=== PATIENT | male | born 1960 | race Caucasian/White ===

== ENCOUNTER 2023-10-01 11:17 | Outpatient (CLI) | payer OTHER ==
--- NOTE | 2023-10-01 11:53 | Sleep Patient Instructions ---
Sleep Center Visit Summary - Patient Visit Information Reason for Visit: Initial consultation - Patient Instructions Additional Instructions: You will continue with CPAP therapy with pressure set at 10 cmH2O. A supply prescription will be updated with your DME. An order for a verifying sleep study since your last sleep study was in 2005 and you have lost weight. We encourage you to continue to try to lose weight. Please follow up with the sleep care office after sleep study and for first compliance visit. - Clinic Information Contact: [facility] [address] [place] [id number] [email or web address] T: [phone]
--- NOTE | 2023-10-01 12:02 | SLEEP CARE CONSULTATION ---
Information from patient questionnaire entered by Ute Medina. I have reviewed and concur with the information entered by Ute Medina. This document represents the service I personally performed and the decisions made by me, Ros Christina ARNP. History of Present Illness Service Date and Time: 10/01/2023 1117 Reason for Visit: Previously diagnosed sleep apnea, sleep apnea on CPAP therapy, Re-establish care Chief Complaint: reports: Other (RE-EVALUATION, NEW MACHINE) Date of Onset: 20+ Usual bedtime: 8-9 Time it takes to fall asleep: 30-120MIN Snores at night: Yes Observed to quit breathing while asleep: Yes Sleeps alone due to snoring: No (N/A) Number of times waking at night: 2-3 Reasons for waking at night: reports: Bathroom. denies: Choking, Snoring, Gasping for air Toss, Turn, or Twitch while sleeping: Yes Recalls having dreams: No Usually gets out of bed at: 330-7AM Feels refreshed in the morning: No Morning headache: No Sleepy or fatigued during the day: No Ever fallen asleep while driving: No Takes day naps: No Prior sleep studies: Yes Year and Where: HERE SEVERAL YRS AGO Additional HPI information: SAMANTHA ANDRADE was previously diagnosed to have moderate, AHI 16.5, obstructive sleep apnea-hypopnea syndrome and comes in today to re-establish care for CPAP therapy. - Parasomnia Symptoms Ever been unable to move upon waking from sleep: No Walks in sleep: No Talks in sleep: No Ever acted out dreams in sleep: No Ever felt weak in the knees when startled or emotional: No Bothered by creepy, crawly, restless sensations in legs: No Problems with memory or concentration: No CPAP Compliance Data - Data Reviewed with Patient Average duration of nightly device use: 8 hours 11 minutes Compliance rate %: 97.8 (184/185 days used) Current pressure setting (cmH2O): 10 Humidity setting: off Average residual AHI: 0.3 Average large leak: 14 mins 23 secs Compliance data discussion: He has a REMstar Pro system one that was set up in 2014. He is getting his supplies from [employer]. He is using Nuance Gel Pillows mask, medium cushion. Subjective Patient concerns: denies: aerophagia, mask discomfort, air blowing in eyes, mask leak noise, condensation in mask/hose, nasal congestion, dry mouth, nose, throat, epistaxis Observed to snore while using device: No Current pressure setting perceived as: comfortable On therapy, patient: reports: sleeping better, awakening more refreshed, being more awake and alert during the day, more rested overall. denies: drowsiness while driving Initial [place] Sleepiness Scale score: 0 (08/22/23) Past Medical History Past Medical History: reports: Hypertension, Diabetes Social History The patient's occupation is a RE. Patient is and lives in [place]. Have you smoked in the past 12 months: No Alcohol use: Yes Alcohol amount and frequency: 12OZ DAILY Caffeine use: Yes Caffeine amount and frequency: 1 CUP EVERY MORNING Family History Family history of sleep disordered breathing: Yes Family Hx Sleep Apnea: Mother: Sleep apnea - Treated Allergies and Home Medications Known drug allergies: No Drug allergies reviewed: Yes Home medication list reviewed: Yes Allergy and home medication list: Allergies No Known Drug Allergies Allergy (Verified 09/27/23 11:03) Home Medications Medication Instructions Recorded Confirmed Last Taken Type Telmisartan See Rx Instructions .ROUTE .COMPLEX 09/27/23 09/27/23 Unknown History Terbinafine [Lamisil] See Rx Instructions .ROUTE .COMPLEX 09/27/23 09/27/23 Unknown History metFORMIN [Glucophage] See Rx Instructions .ROUTE .COMPLEX 09/27/23 09/27/23 Unknown History Review of Systems Weight loss over past 5 years: 30 Cardiovascular: reports: high blood pressure Gastrointestinal: denies: heartburn Neurological: denies: headaches Psychiatric: denies: anxiety, depression Ear/Nose/Throat: reports: wisdom teeth removed. denies: tonsillectomy (born without tonsils) Musculoskeletal: reports: joint pain, neck pain, back pain Physical Exam Vital signs obtained and entered by: SEAN MERAZ Blood Pressure: 154/89 Cuff size: regular (left arm) Heart Rate: 71 O2 Saturation: 99 Height: 6 ft 3 in Weight: 223 lb Body Mass Index: 27.8 BMI Classification: Overweight Neck circumference: 17 (inches) Heart: regular rate and rhythm Lungs: clear bilaterally Impression and Plan 1. Obstructive Sleep Apnea-Hypopnea Syndrome, moderate, with good treatment compliance and good apnea control. On CPAP therapy, the patient has better sleep quality and is more rested overall. He has a REMstar Pro that he received in 2015. The patients CPAP is over 5 years old and of reasonable use. Thus, the CPAP will be updated. A DWO prescription will be made. Compliance guidelines for new device and follow up discussed. Patient's last sleep study was in 2005 which showed moderate obstructive sleep apnea with AHI at 16.5. He has lost about 30 pounds. I feel it would be good to get a new baseline of his sleep apnea. I am going to order a new sleep study and request that he not use his CPAP the night before and night of the study. We will try to coordinate a follow -up after the sleep study and with his new CPAP machine if able. He voiced understanding and agreement of plan of care. Patient's apnea severity and rationale for treatment to reduce apnea, improve sleep quality and reduce cardiovascular and cerebrovascular events was reviewed. I also reviewed the benefit of consistent device use of CPAP for hypertension and diabetes. 2. Overweight, unspecified. Currently patients BMI is 27.8. He has lost 30 pounds in the last 5 years. Obesity increases the risk of apnea, CPAP pressure requirements and overall health risks especially cardiovascular and diabetes. Thus patient is advised to continue to try to lose weight. * Continue auto CPAP pressure at 10 cmH2O * Update machine * Update supply prescription * PSG to verify diagnosis and severity * Notify me if snoring with mask or feeling that the pressure is too much or too little * Attempt to lose weight * Call this office if any problems using CPAP * Return for follow up after sleep study and for compliance visit, or sooner if concerns arise Counseling Topics: Spare mask, Weight loss health impact Prescriptions: Auto CPAP (update machine), Device supplies Plan: PSG/HST to re-verify diagnosis and severity Visit Type: In Office Time Spent with Patient (minutes): 34 Provider Statement: I spent 100% of the Face to Face Visit with the patient with greater than 50% spent counseling the patient and coordination of care.
[2023-10-01 12:10] VITALS: BP 154/89; O2SAT 99
== END 2023-10-01 11:18 | disposition home or self-care (01) ==
LOC: SC 11:17
PROVIDERS: ATTEND Nurse Practitioner Family
DX: G47.33 Obstructive sleep apnea (adult) (pediatric) (principal); I10 Essential (primary) hypertension; E66.3 Overweight; Z68.27 Body mass index [BMI] 27.0-27.9, adult
CPT/HCPCS: 99203; 99212

== ENCOUNTER 2023-11-01 08:53 | Outpatient (CLI) | payer OTHER | END 2023-11-01 08:54 | disposition home or self-care (01) | LOC: SC 08:53 | PROVIDERS: ATTEND Nurse Practitioner Family | DX: G47.33 Obstructive sleep apnea (adult) (pediatric) (principal); E11.9 Type 2 diabetes mellitus without complications; I10 Essential (primary) hypertension | CPT/HCPCS: 95806 ==

== ENCOUNTER 2023-11-08 09:16 | Outpatient (CLI) | payer OTHER ==
--- NOTE | 2023-11-08 09:49 | Sleep Patient Instructions ---
Sleep Center Visit Summary - Patient Visit Information Reason for Visit: Sleep study follow-up - Patient Instructions Additional Instructions: You will be completing a sleep study an in-lab polysomnography (PSG) to verify diagnosis. You will follow-up in the sleep care office after the sleep study is completed to hear the results and talk about therapy, if needed. You will be called by our office staff to schedule this appointment, but you may contact us with any questions. - Clinic Information Contact: [facility] [address] [place] [id number] [email or web address] T: [phone]
--- NOTE | 2023-11-08 09:54 | SLEEP CARE CONSULTATION ---
Information from patient questionnaire entered by Ute Medina. I have reviewed and concur with the information entered by Ute Medina. This document represents the service I personally performed and the decisions made by , Ros Christina ARNP. History of Present Illness Service Date and Time: 11/08/2023 09 Initial [place] Sleepiness Scale score: 0 (08/22/23) Current [place] Sleepiness Scale score: 0 (11/08/23) Additional HPI information: SAMANTHA ANDRADE returns for follow up and results of the recently performed home sleep study. The patient was informed of the following findings: No significant sleep disordered breathing with an average AHI of 4.3 and cori oxygen saturation of 90%. I explained the pathophysiology behind obstructive sleep apnea. Patient does not have sleep apnea and was advised how weight gain could increase the risk of developing sleep apnea in the future. I strongly encouraged the patient to continue to lose weight. Patient does not have significant sleep disordered breathing but has elevated AHI in supine position so advised positional therapy. Methods to achieve positional management therapy were discussed; such as, positioning with pillows, wearing a T-shirt with tennis balls sewn into the back or commercially available products. Patient was cautioned about risks of drowsy driving until sleepiness symptoms resolve. Patient denies drowsy driving. Sleep Study - Results Type of Sleep Study: Home sleep study (COMPLETED 11/01/23) Prior sleep studies: Yes Year and Where: HERE SEVERAL YRS AGO Polysomnography/Home Sleep Study results: Physician Impression: The quality of the study is good. The length of the study is adequate (> 240 minutes). Please also see the tabulated and graphic data. 1. No significant sleep disordered breathing, with an AHI of 4.3/hr and cori SaO2 of 90%. During the study, the patient had 29 apneas (29 obstructive, 0 central, 0 mixed) and 5 hypopneas. The longest episode lasted 84.5 seconds. The few respiratory events occurred almost exclusively during supine sleep (supine AHI was 17.0 and non-supine, 2.34). Allergies and Home Medications Known drug allergies: No Drug allergies reviewed: Yes Home medication list reviewed: Yes (no changes) Allergy and home medication list: Allergies No Known Drug Allergies Allergy Review of Systems Review of systems same as previous: Yes (NO CHANGE) Physical Exam Vital signs obtained and entered by: UTE C, MA Blood Pressure: 145/99 (LEFT ARM) Cuff size: regular Heart Rate: 80 O2 Saturation: 99 Height: 6 ft 3 in Weight: 226 lb Body Mass Index: 28.2 BMI Classification: Overweight Impression and Plan 1. Suspected Obstructive Sleep Apnea-Hypopnea Syndrome, as previously diagnosed. He completed a HST that was borderline and he had significant supine AHI at 17, moderate positional MEGA. I recommend proceeding to polysomnography to confirm the diagnosis and to assess severity. I obtained agreement to proceed. The pathophysiology of obstructive sleep apnea-hypopnea syndrome was discussed with the patient and health risks of cardiovascular and cerebrovascular disease if not treated. Risks of drowsy driving discussed in detail and patient advised to avoid long distance driving and to pull out operator at the first sign of drowsiness. Patient agreed to plan. 2. Overweight, unspecified. Currently patients BMI is 28.2. Obesity increases the risk of apnea, CPAP pressure requirements and overall health risks especially cardiovascular and diabetes. Thus patient is advised to continue to try to lose weight. * Schedule polysomnography * Avoid long distance driving or driving when feeling sleepy. * Avoid alcohol, sedative and muscle relaxant around bedtime. * Continue to try to lose weight. * Review instructions provided by trained office staff on how to prepare for the sleep study. * Return for follow-up after sleep study completed. Counseling Topics: Weight loss health impact Follow up with Sleep Care in: other (after sleep study) Plan: PSG Visit Type: In Office Time Spent with Patient (minutes): 14 Provider Statement: I spent 100% of the Face to Face Visit with the patient with greater than 50% spent counseling the patient and coordination of care.
[2023-11-08 09:59] VITALS: BP 145/99; O2SAT 99
== END 2023-11-08 09:17 | disposition home or self-care (01) ==
LOC: SC 09:16
PROVIDERS: ATTEND Nurse Practitioner Family
DX: G47.33 Obstructive sleep apnea (adult) (pediatric) (principal); Z68.28 Body mass index [BMI] 28.0-28.9, adult; E66.3 Overweight; E11.9 Type 2 diabetes mellitus without complications; I10 Essential (primary) hypertension
CPT/HCPCS: 99212

== ENCOUNTER 2023-12-07 20:30 | Outpatient (CLI) | payer OTHER | END 2023-12-07 20:31 | disposition home or self-care (01) | LOC: SC 20:30 | PROVIDERS: ATTEND Nurse Practitioner Family | DX: G47.8 Other sleep disorders (principal); G47.61 Periodic limb movement disorder | CPT/HCPCS: 95810 ==

== ENCOUNTER 2023-12-26 09:19 | Outpatient (CLI) | payer OTHER ==
--- NOTE | 2023-12-26 09:47 | Sleep Patient Instructions ---
Sleep Center Visit Summary - Patient Visit Information Reason for Visit: Sleep study follow-up - Patient Instructions Additional Instructions: You were here for follow up of sleep study. You will be continued on CPAP therapy with pressure at 10 cmH2O. An order to update machine was re-sent to [facility] You should follow up with sleep care one month after obtaining new machine. You may contact us sooner for any questions or concerns. - Clinic Information Contact: [facility] [address] [place] [address] [email or web address] T: [phone]
--- NOTE | 2023-12-26 09:54 | SLEEP CARE CONSULTATION ---
Information from patient questionnaire entered by Ute Medina. I have reviewed and concur with the information entered by Ute Medina. This document represents the service I personally performed and the decisions made by , Ros Christina ARNP. History of Present Illness Service Date and Time: 12/26/2023918 Initial [place] Sleepiness Scale score: 0 (08/22/23) Current [place] Sleepiness Scale score: 0 (12/26/23) Additional HPI information: SAMANTHA ANDRADE returns for follow up and results of the recently performed polysomnography. The sleep study showed mild Upper Airway Resistance Syndrome with an average AHI of 3.4 with RDI 10 and cori oxygen saturation of 91%. He did not sleep supine during this study. He also had mild PLMs not contributing to sleep fragmentation. I explained the pathophysiology behind obstructive sleep apnea. We then spent quite a bit of time discussing different treatment options. For mild obstructive sleep apnea, surgery and oral appliance are alternatives to nasal CPAP therapy but in moderate or severe cases, nasal CPAP is the most effective and reliable treatment. I reviewed the impact of weight changes on sleep apnea and strongly recommended losing weight. After some discussion, the patient was advised to continue with the nasal CPAP therapy. Patient counseled not drink alcohol less than 4 hours before bedtime as it can increase snoring and apnea. Patient was cautioned about risks of drowsy driving until sleepiness symptoms resolve. Patient denies drowsy driving. Sleep Study - Results Type of Sleep Study: Polysomnography (COMPLETED 11/01/23 COMPLEDTED 12/07/23) Prior sleep studies: Yes Year and Where: HERE SEVERAL YRS AGO Polysomnography/Home Sleep Study results: IMPRESSION: The quality of the study is good. The patient had reduced sleep efficiency due to sleep onset insomnia and two prolonged awakenings in the middle of the night. The sleep architecture was abnormal for sleep fragmentation and reduced amount of time spent in REM and slow wave sleep (N3). Respiratory monitoring showed evidence of upper airway resistance (AHI = 3.4; RDI = 10.0). No hypoxia (cori oxygen saturation of 91%). The patient did not sleep supine during this study (supine AHI = 0.0; non-supine = 3.57). Snore was light to loud in intensity. There was mild periodic leg movement of sleep, not contributing to the sleep fragmentation. Cardiac rhythm was normal sinus rhythm without significant arrhythmia. No abnormal behavior (parasomnia) observed during the night. CONCLUSIONS and RECOMMENDATIONS: 1. Upper Airway Resistance Syndrome (ICD-10 G47.8), as suggested by the frequent respiratory related arousals and elevated RDI. A trial of positive airway pressure therapy is recommended given the above symptoms. 2. Periodic leg movement (ICD G47.61), mild, treatment may be indicated. Clinical correlation advised. Allergies and Home Medications Known drug allergies: No Drug allergies reviewed: Yes Home medication list reviewed: Yes (no changes) Allergy and home medication list: Allergies No Known Drug Allergies Allergy Review of Systems Review of systems same as previous: Yes (NO CHANGE) Physical Exam Vital signs obtained and entered by: UTE Aguilar MA Blood Pressure: 173/97 (RIGHT ARM) Cuff size: regular Heart Rate: 70 O2 Saturation: 90 Height: 6 ft 3 in Weight: 231 lb Body Mass Index: 28.8 BMI Classification: Overweight Impression and Plan 1. Upper Airway Resistance Syndrome, mild, with lowest oxygen saturation of 91%. He did not sleep supine on night of this study because he just could not tolerate it that night. His previous HST showed supine AHI of 17. His last sleep study in 2005 showed moderate obstructive sleep apnea. He continues to need CPAP therapy. Continuing positive pressure therapy could benefit hypertension and diabetes. As mentioned above, the patient will be continued on nasal autoCPAP therapy with pressure set at 10 cmH2O. Compliance guidelines also reviewed. A prescription for a replacement CPAP was sent to his DME after his appointment in September 2023. We checked with [employer] and they said they did not receive it. We will resend the order to update his CPAP and have him back in for a compliance followup. He voiced understanding and agreement with plan of care. 2. Periodic limb movement, mild, that did not fragment patients sleep. Periodic limb movement of sleep (PLMS) is characterized by episodes of repetitive limb movements that occur during sleep and usually involve the lower limbs. The etiology is unknown. Sleep hygiene methods can also improve sleep as well as lifestyle changes such as regular exercise. Patient was advised that no treatment is needed at this time. If symptoms increase, then further evaluation is indicated. 3. Overweight, unspecified. Currently patients BMI is 28.8. Obesity increases the risk of apnea, CPAP pressure requirements and overall health risks especially cardiovascular and diabetes. Thus patient is advised to lose weight. * Continue CPAP pressure at 10 cmH2O * Updating machine, prescription resent to DME * Notify me if snoring with mask or feeling that the pressure is too much or too little * Attempt to lose weight * Call this office if any problems using CPAP * Return for follow up one month after obtaining new device, or sooner if concerns arise Counseling Topics: Weight loss health impact Prescriptions: Auto CPAP (resent) Visit Type: In Office Time Spent with Patient (minutes): 20 Provider Statement: I spent 100% of the Face to Face Visit with the patient with greater than 50% spent counseling the patient and coordination of care.
[2023-12-26 10:03] VITALS: BP 173/97; O2SAT 90
== END 2023-12-26 09:20 | disposition home or self-care (01) ==
LOC: SC 09:19
PROVIDERS: ATTEND Nurse Practitioner Family
DX: G47.8 Other sleep disorders (principal); G47.61 Periodic limb movement disorder; E66.3 Overweight; Z68.28 Body mass index [BMI] 28.0-28.9, adult
CPT/HCPCS: 99212; 99213